=== PATIENT | male | born 1935 | race Caucasian/White ===

== ENCOUNTER 2019-01-25 14:32 | Emergency (ER) | payer MEDICARE, OTHER ==
[~2019-01-25] VITALS: Ht 180.3 cm; Wt 97.5 kg
[2019-01-25 15:21] LABS: Basophils # (auto) 0 uL; Basophils % (auto) 0.7 % (0.0-2.0); Eosinophils # (auto) 0.2 uL; Eosinophils % (auto) 3.1 % (0.0-7.0); Hematocrit 41.3 % (41.0-53.0); Hemoglobin 13.6 g/dL (13.5-17.5); Lymphocytes # (auto) 1.4 uL; Mean Corpuscular Hemoglobin 28.8 pg (28.0-32.0); Mean Corpuscular Hgb Conc. 32.8 g/dL (32.0-36.0); Mean Corpuscular Volume 87.8 fL (80.0-100.0); Monocytes # (auto) 0.5 uL; Monocytes % (auto) 8.6 % (0.0-12.0); Neutrophils # (auto) 3.7 uL; Neutrophils % (auto) 63.6 % (37.0-80.0); Nucleated Red Blood Cells % 0.1 %; Platelet Count (auto) 239 10^3/uL (140-450); Red Cell Distribution Width 14.5 % (11.8-14.3); White Blood Cell 5.9 10^3/uL (4.4-10.8)
[2019-01-25 15:35] LABS: INR 1.01 (0.9-1.15); Partial Thromboplastin Time 24.5 sec (23.64-32.05)
[2019-01-25 15:37] LABS: Albumin 3.8 g/dL (3.4-5.0); BUN/Creatinine Ratio 12.7; Calcium 8.7 mg/dL (8.5-10.1); Magnesium 1.8 mg/dL (1.6-2.6); Potassium 4.3 mmol/L (3.5-5.1)
[2019-01-25 15:40] LABS: Bilirubin, Total 0.4 mg/dL (0.2-1.0); Total Protein 7.4 g/dL (6.4-8.2)
[2019-01-25 18:28] VITALS: BP 130/71
== END 2019-01-25 18:33 | disposition home or self-care (01) ==
LOC: ER 14:32
DX: R94.31 Abnormal electrocardiogram [ECG] [EKG] (principal); I10 Essential (primary) hypertension; E78.5 Hyperlipidemia, unspecified; E11.9 Type 2 diabetes mellitus without complications; Z90.89 Acquired absence of other organs
CPT/HCPCS: 36415; 71045; 80053; 83735; 84484; 85025; 85610; 85730; 93005

== ENCOUNTER 2019-02-19 09:07 | Inpatient (IN) | payer MEDICARE, OTHER ==
[2019-02-13 14:20] LABS: Urine Bacteria NONE SEEN /hpf (None Seen); Urine Blood Negative /uL (Negative); Urine Specific Gravity 1.016 (1.001-1.035); Urine WBC 3 /hpf (0 - 3)
[2019-02-13 14:34] LABS: Albumin 4.2 g/dL (3.4-5.0); Calcium 9.3 mg/dL (8.5-10.1); Potassium 4.5 mmol/L (3.5-5.1)
[2019-02-13 14:39] LABS: BUN/Creatinine Ratio 12.9; Bilirubin, Total 0.6 mg/dL (0.2-1.0); Total Protein 7.5 g/dL (6.4-8.2)
[2019-02-13 14:43] LABS: Basophils # (auto) 0 uL; Basophils % (auto) 0.4 % (0.0-2.0); Eosinophils # (auto) 0.1 uL; Eosinophils % (auto) 1.2 % (0.0-7.0); Hematocrit 42.9 % (41.0-53.0); Hemoglobin 14.1 g/dL (13.5-17.5); Lymphocytes # (auto) 1.2 uL; Lymphocytes % (auto) 16.7 % (10.0-50.0); Mean Corpuscular Hgb Conc. 32.9 g/dL (32.0-36.0); Mean Corpuscular Volume 88.3 fL (80.0-100.0); Monocytes # (auto) 0.8 uL; Monocytes % (auto) 10.4 % (0.0-12.0); Neutrophils # (auto) 5.3 uL; Neutrophils % (auto) 71.3 % (37.0-80.0); Nucleated Red Blood Cells % 0.1 %; Platelet Count (auto) 277 10^3/uL (140-450); Red Blood Cells 4.86 10^6/uL (4.5-5.90); Red Cell Distribution Width 14.9 % (11.8-14.3); White Blood Cell 7.4 10^3/uL (4.4-10.8)
[2019-02-13 14:59] LABS: INR 1.01 (0.9-1.15); Partial Thromboplastin Time 24.3 sec (23.64-32.05)
[~2019-02-19] VITALS: Ht 180.3 cm; Wt 96.0 kg
[~2019-02-19 09:07] MED LIST: ATOR20TA PO; ESOM20CA PO; LISI2.5T47 PO; METF-490 PO; TAMS0.4C36 PO
[2019-02-19] MEDS ORDERED: ceFAZolin 1GM/50ML 100 ML IV ONE (10:56)
[2019-02-19] MEDS ORDERED: ACETAMINOPHEN IV 100 ML IV ONE (11:06)
[2019-02-19] MEDS ORDERED: SUCCINYLCHOLINE CHLORIDE 20 MG/ML 10ML VIAL IV ONE (11:28)
[2019-02-19] MEDS ORDERED: fentaNYL CITRATE 100 MCG/2 ML VL ONE (11:36)
[2019-02-19] MEDS ORDERED: BUPIVACAINE W/ EPINEPH 0.25% INJ 50ML MDV ONE (11:36)
[2019-02-19] MEDS ORDERED: MIDAZOLAM HCL 1MG/1ML-2 ML VIAL ONE (11:36)
[2019-02-19] MEDS ORDERED: MEPERIDINE HCL (25 MG/ML) 1ML VIAL ONE (11:37)
[2019-02-19] MEDS ORDERED: ETOMIDATE (2MG/ML) 20ML VIAL IV ONE (11:57)
[2019-02-19] MEDS ORDERED: DexAMETHasone SOD PHOS 10MG/1ML VIAL INJ ONE (11:57)
[2019-02-19] MEDS ORDERED: fentaNYL CITRATE 5 ML ONE (12:03)
[2019-02-19] MEDS ORDERED: MORPHINE SULFATE 4 MG/ML SYR/VIAL IV PRN (12:30)
[2019-02-19] MEDS ORDERED: MIDAZOLAM HCL 1MG/1ML-2 ML VIAL IV PRN (12:30)
[2019-02-19] MEDS ORDERED: ONDANSETRON HCL 4 MG/2 ML VIAL IV PRN (12:30)
[2019-02-19] MEDS ORDERED: LABETALOL HCL 5 MG/ML 4ML SYRINGE IV PRN (12:30)
[2019-02-19] MEDS ORDERED: HYDROmorphone HCL 2 MG/ML VL IV PRN (12:30)
[2019-02-19] MEDS ORDERED: ePHEDrine SULFATE 50 MG/ML AMP IV PRN (12:30)
[2019-02-19] MEDS ORDERED: NITROGLYCERIN 0.4 MG SL TAB SL PRN (16:00)
[2019-02-19] MEDS ORDERED: MORPHINE SULF INJ 2 MG/ML SYRINGE 1ML IV PRN (16:00)
[2019-02-19] MEDS ORDERED: ACETAMINOPHEN 325 MG TAB PO PRN ×2 (16:00→16:15)
[2019-02-19] MEDS ORDERED: HYDROcodone-ACET 5/325MG TAB PO PRN (16:00)
[2019-02-19] MEDS ORDERED: DEXTROSE (50%) 50ML SYRG IV PRN (16:30)
[2019-02-19 17:27] LABS: Alanine Aminotransferase 18 U/L (16-61); Albumin 3.3 g/dL (3.4-5.0); Anion Gap 9 (5-15); Aspartate Aminotransferase 20 U/L (15-37); BUN/Creatinine Ratio 13.3; Blood Urea Nitrogen 16 mg/dL (7-18); Calcium 8.3 mg/dL (8.5-10.1); Carbon Dioxide 21 mmol/L (21-32); Chloride 110 mmol/L (98-107); GFR African American 75 mL/min; GFR Non-African American 62 mL/min; Glucose 179 mg/dL (74-106); Potassium 4.2 mmol/L (3.5-5.1); Sodium 140 mmol/L (136-145)
[2019-02-19 17:30] LABS: Alkaline Phosphatase 70 U/L (45-117); Bilirubin, Total 0.4 mg/dL (0.2-1.0); Total Protein 6.8 g/dL (6.4-8.2)
[2019-02-19 17:58] VITALS: BP 165/89
[2019-02-19] MEDS: ACCU-CHEK COMFORT CURVE STRIP VI SCH ×2 (18:00→22:00)
[2019-02-19] MEDS: InsuLIN REG 1unit/0.01ml Soln (100units/ml) SC SCH ×2 (18:00→22:00)
[2019-02-19] MEDS: ceFAZolin 1GM/50ML 50 ML IV SCH ×2 (18:42→23:44)
[2019-02-19] MEDS: SODIUM CHLORIDE 0.9% 1,000 ML IV SCH (18:42)
--- NOTE | 2019-02-19 19:45 | NUR ---
Opening Shift Note Received report from JULIANA Carpio and assumed care of patient, awake and alert. No S/S of distress/SOB or pain. Instructed patient to call assist if needed and verbalized understanding . Will continue to monitor.
--- NOTE | 2019-02-19 21:00 | NUR ---
Ambulation: Patient OOB with standby assistance by RN. Patient ambulated to bathroom with steady gait. Patient able to void without difficulty.Patient ambulated back to bed with steady gait and no distress noted.
[2019-02-19 22:00] VITALS: BP 129/74
[2019-02-19] MEDS: DOCUSATE SOD 100 MG CAP PO SCH (22:00)
--- NOTE | 2019-02-19 22:30 | NUR ---
Period of confusion noted. Patient not aware about time . Patient restless and c/o pain in his R shoulder. Patient refused his medication ( colace ) and refused to check his blood sugar. Patient said " Im not diabetic. I never check my blood sugar".Will medicate patient with Dilaudid IV as requested.
[2019-02-19] MEDS: HYDROmorphone HCL 2 MG/ML VL IV PRN (22:58)
--- NOTE | 2019-02-20 02:40 | NUR ---
Ambulation: Patient OOB with standby assistance by RN. Patient ambulated to bathroom with unsteady gait. Patient able to void without difficulty. Patient ambulated back to bed and no distress noted. Patient said not to disturb him.
[2019-02-20] MEDS: HYDROmorphone HCL 2 MG/ML VL IV PRN ×2 (02:48→07:24)
[2019-02-20 06:00] VITALS: BP 146/78
[2019-02-20 06:02] LABS: Basophils # (auto) 0 uL; Eosinophils # (auto) 0 uL; Hematocrit 35.7 % (41.0-53.0); Hemoglobin 11.8 g/dL (13.5-17.5); Lymphocytes # (auto) 0.8 uL; Lymphocytes % (auto) 5.7 % (10.0-50.0); Mean Corpuscular Volume 87.9 fL (80.0-100.0); Monocytes # (auto) 1.6 uL; Monocytes % (auto) 11.5 % (0.0-12.0); Neutrophils # (auto) 11.3 uL; Neutrophils % (auto) 82.8 % (37.0-80.0); Platelet Count (auto) 278 10^3/uL (140-450); Red Blood Cells 4.06 10^6/uL (4.5-5.90); Red Cell Distribution Width 14.9 % (11.8-14.3); White Blood Cell 13.6 10^3/uL (4.4-10.8)
[2019-02-20 06:05] LABS: INR 1.04 (0.9-1.15)
[2019-02-20 06:11] LABS: Potassium 4.6 mmol/L (3.5-5.1)
[2019-02-20 06:21] LABS: Albumin 3.3 g/dL (3.4-5.0); BUN/Creatinine Ratio 16.4; Bilirubin, Total 0.4 mg/dL (0.2-1.0); Calcium 8.3 mg/dL (8.5-10.1); Total Protein 6.6 g/dL (6.4-8.2)
[2019-02-20] MEDS: SODIUM CHLORIDE 0.9% 1,000 ML IV SCH ×2 (06:51→12:30)
[2019-02-20] MEDS: ACCU-CHEK COMFORT CURVE STRIP VI SCH ×2 (07:00→11:30)
[2019-02-20] MEDS: InsuLIN REG 1unit/0.01ml Soln (100units/ml) SC SCH ×2 (07:00→11:30)
--- NOTE | 2019-02-20 07:30 | NUR ---
Opening Shift Note Assumed care of patient, awake and alert. No S/S of distress/SOB or pain. Immobilizer in place to RT upper extremity. Dressing to rt shoulder is clean, dry, and intact. Instructed on POC and to call for assist PRN, will continue to monitor. Bed locked in the lowest position. Bed rails up x2. Call light in reach.
--- NOTE | 2019-02-20 08:00 | NUR ---
AT THE [facility]EDS[facility] UPDATING PATIENT ON POC.
[2019-02-20] MEDS: ceFAZolin 1GM/50ML 50 ML IV SCH (08:06)
--- NOTE | 2019-02-20 08:48 | NUR ---
DISCHARGE ORDER CLARIFICATION SPOKE WITH [facility]E DAMON, YUNI LEIVA, [facility] OFFICE WILL ARRANGE FOR HOME HEALTH AND PHYSICAL THERAPY.
[2019-02-20 09:00] VITALS: BP 136/74
[2019-02-20] MEDS: DOCUSATE SOD 100 MG CAP PO SCH (09:55)
[2019-02-20] MEDS ORDERED: ENOXAPARIN SOD 40 MG/0.4 ML SYRINGE SC SCH (10:00)
--- NOTE | 2019-02-20 11:15 | NUR ---
DR. DAVIDSON AT THE BEDSIDE PER DR. DAVIDSON, OK TO DISCHARGE PATIENT PER [facility] EVANS.
--- NOTE | 2019-02-20 12:44 | NUR ---
DISCHARGE Discharge instructions given as ordered. Encourage to follow up with PMD as instructed. All questions and concerns addressed. Patient verbalized understanding. Medication reconciliation form completed and copy given to patient. IV removed with catheter intact, pressure dressing applied. Telemetry unit returned to ICU. Patient taken to vehicle via wheelchair with all personal belongings, accompanied by staff and family member. No distress noted at time of departure.
--- NOTE | 2019-02-20 15:23 | NUR ---
assessment Patient discharged home prior to being assessed. Addendum: 02/20/19 at 1524 by Katelyn THAYER Amended: Links added.
== END 2019-02-20 12:45 | disposition home or self-care (01) | DRG 483 ==
LOC: SUR 09:07 → TELE-WESTW 09:08
PROVIDERS: ADMIT Orthopaedic Surgery Adult Reconstructive Orthopaedic Surgery; ATTEND Orthopaedic Surgery Adult Reconstructive Orthopaedic Surgery
PROC: 0RRJ00Z Replacement of Right Shoulder Joint with Reverse Ball and Socket Synthetic Substitute, Open Approach (ICD-10-PCS; principal; 2019-02-19 11:40)
DX: M19.011 Primary osteoarthritis, right shoulder (principal); M75.101 Unspecified rotator cuff tear or rupture of right shoulder, not specified as traumatic; I10 Essential (primary) hypertension; E11.40 Type 2 diabetes mellitus with diabetic neuropathy, unspecified; E78.5 Hyperlipidemia, unspecified; N40.0 Benign prostatic hyperplasia without lower urinary tract symptoms; K21.9 Gastro-esophageal reflux disease without esophagitis; M17.10 Unilateral primary osteoarthritis, unspecified knee
CPT/HCPCS: 36415; 73030; 80053; 81001; 82962; 85025; 85610; 85730; 86850; 86900; 86901; 87081; G0378; J0131; J0330; J0690; J1100; J2250

== ENCOUNTER 2020-06-09 14:27 | Inpatient (IN) | payer MEDICARE, OTHER ==
[~2020-06-09] VITALS: Ht 180.3 cm; Wt 93.8 kg
[2020-06-09 14:50] LABS: Basophils # (auto) 0.1 10 ^3/uL (0-0.2); Eosinophils # (auto) 0.2 10 ^3/uL (0-0.8); Eosinophils % (auto) 1.3 % (0.0-7.0); Hemoglobin 11.5 g/dL (13.5-17.5); Lymphocytes # (auto) 1.4 10 ^3/uL (0.4-5.4); Monocytes # (auto) 1.3 10 ^3/uL (0-1.3)
[2020-06-09 14:51] LABS: Basophils % (auto) 0.4 % (0.0-2.0); Hematocrit 34.7 % (41.0-53.0); Lymphocytes % (auto) 9.8 % (10.0-50.0); Mean Corpuscular Hemoglobin 27.1 pg (28.0-32.0); Mean Corpuscular Volume 82.2 fL (80.0-100.0); Monocytes % (auto) 9.2 % (0.0-12.0); Neutrophils # (auto) 11.2 10 ^3/uL (1.6-8.6); Neutrophils % (auto) 79.3 % (37.0-80.0); Nucleated Red Blood Cells % 0.1 %; Platelet Count (auto) 397 10^3/uL (140-450); Red Blood Cells 4.23 10^6/uL (4.5-5.90); Red Cell Distribution Width 17.2 % (11.8-14.3); White Blood Cell 14.1 10^3/uL (4.4-10.8)
[2020-06-09] MEDS ORDERED: SODIUM CHLORIDE 0.9% 1,000 ML IV ONE ×2 (15:00)
[2020-06-09 15:16] LABS: Albumin 3.1 g/dL (3.4-5.0); Anion Gap 11 (5-15); Blood Urea Nitrogen 18 mg/dL (7-18); Calcium 9.1 mg/dL (8.5-10.1); Carbon Dioxide 21 mmol/L (21-32); Chloride 106 mmol/L (98-107); Glucose 104 mg/dL (74-106); Lipase 182 U/L (73-393); Potassium 3.9 mmol/L (3.5-5.1); Sodium 138 mmol/L (136-145)
[2020-06-09 15:22] LABS: Alanine Aminotransferase 22 U/L (16-61); Alkaline Phosphatase 132 U/L (45-117); Aspartate Aminotransferase 15 U/L (15-37); BUN/Creatinine Ratio 15.4; Bilirubin, Total 0.4 mg/dL (0.2-1.0); GFR African American 76 mL/min; GFR Non-African American 63 mL/min; Total Protein 7.7 g/dL (6.4-8.2)
[2020-06-09 16:39] LABS: Urine WBC None Seen /hpf (0 - 3)
[2020-06-09] MEDS ORDERED: cefTRIAXone 1GM/50ML D5W 50 ML IV ONE (16:45)
[2020-06-09] MEDS ORDERED: metroNIDAZOLE 500MG/100ML 100 ML IV ONE (16:45)
[2020-06-09 16:59] LABS: Urine Bacteria NONE SEEN /hpf (None Seen); Urine Blood Negative /uL (Negative); Urine Specific Gravity 1.015 (1.001-1.035)
[2020-06-09] MEDS ORDERED: MORPHINE SULF INJ 2 MG/ML SYRINGE 1ML IV PRN ×2 (17:30)
[2020-06-09] MEDS ORDERED: ACETAMINOPHEN 500 MG TAB PO PRN (17:30)
[2020-06-09] MEDS ORDERED: DEXTROSE (50%) 50ML SYRG IV PRN (17:30)
[2020-06-09] MEDS ORDERED: HYDROcodone-ACET 5/325MG TAB PO PRN (17:30)
[2020-06-09] MEDS ORDERED: NITROGLYCERIN 0.4 MG SL TAB SL PRN (17:30)
[2020-06-09] MEDS: SODIUM CHLORIDE 0.9% 1,000 ML IV SCH (17:59)
[2020-06-09] MEDS ORDERED: TAMSULOSIN HYDROCHLORIDE 0.4 MG CAP PO SCH (18:00)
[2020-06-09 21:36] VITALS: BP 122/77
[2020-06-09] MEDS: InsuLIN REG 1unit/0.01ml Soln (100units/ml) SC SCH (22:00)
[2020-06-09] MEDS: ACCU-CHEK COMFORT CURVE STRIP VI SCH (22:29)
[2020-06-09] MEDS: metroNIDAZOLE 500MG/100ML 100 ML IV SCH (22:29)
[2020-06-10] MEDS: SODIUM CHLORIDE 0.9% 1,000 ML IV SCH (04:19)
[2020-06-10 05:03] VITALS: BP 122/69
[2020-06-10] MEDS: metroNIDAZOLE 500MG/100ML 100 ML IV SCH (05:58)
[2020-06-10] MEDS: InsuLIN REG 1unit/0.01ml Soln (100units/ml) SC SCH ×2 (07:00→11:30)
[2020-06-10] MEDS: ACCU-CHEK COMFORT CURVE STRIP VI SCH ×2 (07:18→11:30)
[2020-06-10 08:00] VITALS: BP 147/80
[2020-06-10 08:32] VITALS: BP 147/80
[2020-06-10] MEDS ORDERED: cefTRIAXone 1GM/50ML D5W 50 ML IV SCH (09:00)
[2020-06-10] MEDS ORDERED: FAMOTIDINE 20 MG TAB PO SCH (10:00)
[2020-06-10] MEDS ORDERED: LISINOPRIL 5 MG TAB PO SCH (10:00)
[2020-06-10] MEDS ORDERED: ESOMEPRAZOLE 40 MG/5ml VIAL INJ IV SCH (10:00)
[2020-06-10] MEDS ORDERED: ATORVASTATIN 20 MG TAB PO SCH (10:00)
[2020-06-10 13:00] VITALS: BP 115/68
== END 2020-06-10 14:25 | disposition left against medical advice (07) | DRG 872 ==
LOC: ER 14:27 → TELE 14:28 → TELE-WESTW 21:45
PROVIDERS: ADMIT Nurse Practitioner Acute Care; ATTEND Internal Medicine
DX: A41.9 Sepsis, unspecified organism (principal); E44.1 Mild protein-calorie malnutrition; K57.32 Diverticulitis of large intestine without perforation or abscess without bleeding; Z20.822 Contact with and (suspected) exposure to COVID-19; M19.90 Unspecified osteoarthritis, unspecified site; N18.9 Chronic kidney disease, unspecified; K21.9 Gastro-esophageal reflux disease without esophagitis; E11.22 Type 2 diabetes mellitus with diabetic chronic kidney disease; E78.5 Hyperlipidemia, unspecified; I12.9 Hypertensive chronic kidney disease with stage 1 through stage 4 chronic kidney disease, or unspecified chronic kidney disease; Z96.653 Presence of artificial knee joint, bilateral; Z53.29 Procedure and treatment not carried out because of patient's decision for other reasons
CPT/HCPCS: 36415; 71045; 74176; 80053; 81001; 82962; 83036; 83605; 83690; 84484; 85025; 87040; 87426; 93005; 96361; 96365; 96368; G0378; J0696; J3490